=== PATIENT | female | born 2000 | race Caucasian/White ===

== ENCOUNTER 2020-02-01 16:35 | Emergency (ER) | payer OTHER ==
[2020-02-01 16:47] VITALS: BP 155/100; PULSE 89; TEMP 98.8; BMI 25.3
[2020-02-01 17:29] LABS: BASO % 0.3 % (0-2.0); EOS % 1.8 % (0-4.5); HEMATOCRIT 27.9 % (32.4-45.2); HEMOGLOBIN 8.9 GM/dL (10.7-15.3); LYMPH % 13.4 % (8-40); MCH 21.9 pg (25.7-33.7); MCHC 31.9 g/dl (32.0-36.0); MEAN CELL VOLUME 68.7 fl (80-96); MEAN PLT VOLUME 7.3 fl (7.5-11.1); MONO % 8.9 % (3.8-10.2); NEUT % 75.6 % (42.8-82.8); PLATELET COUNT 298 K/MM3 (134-434); RBC 4.06 M/mm3 (3.60-5.2); RDW 16.5 % (11.6-15.6); WHITE BLOOD COUNT 8.6 K/mm3 (4.0-10.0)
[2020-02-01 18:08] LABS: ALBUMIN 2.6 g/dl (3.4-5.0); BILIRUBIN,TOTAL 0.2 mg/dL (0.2-1); BLOOD UREA NITROGEN 7.6 mg/dL (7-18); CALCIUM 8.6 mg/dL (8.5-10.1); CREATININE 0.5 mg/dL (0.55-1.3); POTASSIUM 4.4 mmol/L (3.5-5.1); TOT PROT 7.2 g/dl (6.4-8.2)
[2020-02-01 18:41] LABS: EPI CELLS >36 /uL (0-25.1); HYALINE CASTS 6 /uL (0-3.1); PH,URINE 7.5 (5.0-8.0); URINE APPEARANCE CLOUDY; URINE BACTERIA 4090 /uL (0-1359); URINE BILIRUBIN NEGATIVE (NEGATIVE); URINE COLOR YELLOW; URINE GLUCOSE (UA) NEGATIVE (NEGATIVE); URINE KETONE 1+ (NEGATIVE); URINE LEUK ESTERASE 2+ (NEGATIVE); URINE NITRITE NEGATIVE (NEGATIVE); URINE PROTEIN TRACE (NEGATIVE); URINE UROBILINOGEN 0.2 mg/dL (0.2-1.0); URINE WBC 274 /uL (0-25.8)
[2020-02-01 19:15] LABS: URINE RBC 18.2 /uL (0-23.9)
[2020-02-01 20:02] LABS: ANISOCYTOSIS 1+; MACROCYTOSIS 1+; OVALOCYTE 1+; PLATELET ESTIMATE NORMAL
== END 2020-02-01 22:00 | disposition home or self-care (01) ==
LOC: JER 16:35
DX: O99.012 Anemia complicating pregnancy, second trimester (principal)
CPT/HCPCS: 36415; 76801-TC; 80053; 81003; 84702; 85025; 86850; 86900; 86901; 87086; 87186; 99285-25

== ENCOUNTER 2020-02-12 04:26 | Emergency (ER) | payer OTHER ==
--- NOTE | 2020-02-12 05:02 | PDOC ---
Attending Attestation - Resident Resident Name: BrannonClinton - ED Attending Attestation I have performed the following: I have examined & evaluated the patient, The case was reviewed & discussed with the resident, I agree w/resident's findings & plan - HPI HPI: 02/12/20 06:40 see resident hpi - Physicial Exam PE: 02/12/20 06:40 see resident exam - Medical Decision Making 02/12/20 06:40 19-year-old female approximately 15 weeks gestational age with vaginal spotting and suprapubic pain Positive heart rate of 139 on bedside ultrasound We will sign out to dayshift pending labs and formal ultrasound Discharge - Discharge Information Problems reviewed: Yes Clinical Impression/Diagnosis: Vaginal bleeding during Condition: Fair - Follow up/Referral - Patient Discharge Instructions - Post Discharge Activity
[2020-02-12] MEDS ORDERED: LACTATED RINGERS SOLUTION 1000 ML INFUS.BAG IV ONE (05:09)
--- NOTE | 2020-02-12 05:09 | PDOC ---
History of Present Illness <Maritza Russell - Last Filed: 02/12/20 08:36> - History of Present Illness Initial Comments: Fanny Bey is a 19 y/o female with PMH significant for anemia, @ 15 weeks, presenting today with suprapubic abdominal pain and vaginal spotting. Reports that this started a few hours ago and she placed a pad. No clots. No fever/chills. No chest pain/shortness of breath/dizziness. No back pain. No dysuria. No leg swelling. No nausea/vomiting. <Clinton Brannon - Last Filed: 02/13/20 12:27> - General Stated Complaint: VAG BLEED/15 WEEKS Time Seen by Provider: 02/12/20 04:59 Past History <Maritza Russell - Last Filed: 02/12/20 08:36> - Medical History COPD: No - Immunization History Immunization Up to Date: Yes - Psycho-Social/Smoking History Smoking History: Never smoked <Clinton Brannon - Last Filed: 02/13/20 12:27> - Medical History Allergies/Adverse Reactions: Allergies Allergy/AdvReac Type Severity Reaction Status Date / Time No Known Allergies Allergy Verified 02/12/20 05:12 Home Medications: Ambulatory Orders NK [No Known Home Medication] 02/12/20 Review of Systems - Review of Systems Comments:: GENERAL/CONSTITUTIONAL: No fever or chills. No weakness._ HEAD, EYES, EARS, NOSE AND THROAT: No change in vision. No change in hearing. No sore throat._ CARDIOVASCULAR: No chest pain or shortness of breath_ RESPIRATORY: Denies cough, hemoptysis_ GASTROINTESTINAL: No nausea, vomiting, diarrhea or constipation._ GENITOURINARY: No dysuria, frequency, or change in urination. Reports vaginal spotting. MUSCULOSKELETAL: No joint or muscle swelling or pain. No neck or back pain._ SKIN: No rash_ NEUROLOGIC: No headache, vertigo, loss of consciousness, or change in strength/sensation._ ENDOCRINE: No increased thirst. No abnormal weight change_ HEMATOLOGIC/LYMPHATIC: No anemia, easy bleeding, or history of blood clots._ ALLERGIC/IMMUNOLOGIC: No hives or skin allergy._ <Clinton Brannon - Last Filed: 02/13/20 12:27> *Physical Exam - Vital Signs Last Vital Signs Temp Pulse Resp BP Pulse Ox 98.1 F 65 16 90/60 100 02/12/20 06:44 02/12/20 07:10 02/12/20 07:10 02/12/20 07:10 02/12/20 07:10 <Maritza Russell - Last Filed: 02/12/20 08:36> - Physical Exam GENERAL: Awake, alert, and oriented to person/place/time, in no acute distress_ HEAD: No signs of trauma, normocephalic, atraumatic _ EYES: PERRLA, EOMI, sclera anicteric, conjunctiva clear_ ENT: Hearing grossly normal, nares patent, oropharynx clear without exudates. No uvular deviation. Moist mucosa_ NECK: Normal ROM, supple, no lymphadenopathy, JVD, or masses_ LUNGS: No distress, speaks in full sentences, clear to auscultation bilaterally _ HEART: Regular rate and rhythm, normal S1 and S2, no murmurs appreciated, peripheral pulses normal and equal bilaterally._ ABDOMEN: Soft, minimal suprapubic TTP, normoactive bowel sounds. No guarding, no rebound. No masses_ EXTREMITIES: Normal inspection, Normal range of motion, no edema. No clubbing or cyanosis_ NEUROLOGICAL: Cranial nerves II through XII grossly intact. Normal speech, normal gait, no focal sensorimotor deficits _ SKIN: Warm, Dry, normal turgor, no rashes or lesions noted_ PELVIC: Os closed. Minimal bleeding in vaginal vault. No discharge. No CMT or adnexal tenderness bilaterally. <Clinton Brannon - Last Filed: 02/13/20 12:27> ED Treatment Course - LABORATORY CBC & Chemistry Diagram: 02/12/20 05:20 02/12/20 05:32 - ADDITIONAL ORDERS Additional order review: Laboratory Results 02/12/20 02/12/20 02/12/20 06:11 05:32 05:32 Sodium 137 Potassium 3.8 Chloride 105 Carbon Dioxide 24 Anion Gap 8 BUN 12.2 Creatinine 0.5 L Est GFR (CKD-EPI)AfAm 160.35 Est GFR (CKD-EPI)NonAf 138.35 Random Glucose 81 Calcium 8.6 Total Bilirubin 0.2 AST 11 L ALT 26 Alkaline Phosphatase 96 Total Protein 7.3 Albumin 2.7 L Beta HCG, Quant 14772.2 Urine Color Yellow Urine Appearance Clear Urine pH 7.0 Ur Specific [place] 1.012 Urine Protein Negative Urine Glucose (UA) Negative Urine Ketones Negative Urine Blood 1+ H Urine Nitrite Positive H Urine Bilirubin Negative Urine Urobilinogen 0.2 Ur Leukocyte Esterase 2+ H Urine WBC (Auto) 90 Urine RBC (Auto) 1 Urine Casts (Auto) 2 U Epithel Cells (Auto) >36 Urine Bacteria (Auto) >10,000 02/12/20 05:20 RBC 4.20 MCV 70.2 L MCHC 31.4 L RDW 17.7 H MPV 6.7 L Neutrophils % 63.6 Lymphocytes % 27.7 D Monocytes % 5.1 Eosinophils % 3.2 Basophils % 0.4 - Medications Given in the ED: ED Medications Discontinued Medications Generic Name Dose Route Start Last Admin Trade Name Brayanq PRN Reason Stop Dose Admin Lactated Ringer's 1,000 ml 02/12/20 05:09 02/12/20 05:27 Lactated Ringers Solution IV 02/12/20 05:10 1,000 ml NOW ONE Administration Sodium Chloride 1,000 ml 02/12/20 05:14 02/12/20 05:41 Normal Saline - IV 02/12/20 05:15 Not Given ONCE ONE <Maritza Russell - Last Filed: 02/12/20 08:36> - LABORATORY CBC & Chemistry Diagram: 02/12/20 05:20 02/12/20 05:32 <Clinton Brannon - Last Filed: 02/13/20 12:27> Medical Decision Making - Medical Decision Making 02/12/20 05:13 19F presenting today with vaginal spotting. Baseline anemia. -labs -type and screen - US 02/12/20 06:17 POCUS OB shows FHR of 140bpm. 02/12/20 07:19 Labs reviewed. Laboratory Last Values WBC 9.0 K/mm3 (4.0-10.0) 02/12/20 05:20 RBC 4.20 M/mm3 (3.60-5.2) 02/12/20 05:20 Hgb 9.3 GM/dL (10.7-15.3) L 02/12/20 05:20 Hct 29.5 % (32.4-45.2) L 02/12/20 05:20 MCV 70.2 fl (80-96) L 02/12/20 05:20 MCH 22.1 pg (25.7-33.7) L 02/12/20 05:20 MCHC 31.4 g/dl (32.0-36.0) L 02/12/20 05:20 RDW 17.7 % (11.6-15.6) H 02/12/20 05:20 Plt Count 492 K/MM3 (134-434) H D 02/12/20 05:20 MPV 6.7 fl (7.5-11.1) L 02/12/20 05:20 Absolute Neuts (auto) 5.7 K/mm3 (1.5-8.0) 02/12/20 05:20 Neutrophils % 63.6 % (42.8-82.8) 02/12/20 05:20 Lymphocytes % 27.7 % (8-40) D 02/12/20 05:20 Monocytes % 5.1 % (3.8-10.2) 02/12/20 05:20 Eosinophils % 3.2 % (0-4.5) 02/12/20 05:20 Basophils % 0.4 % (0-2.0) 02/12/20 05:20 Nucleated RBC % 0 % (0-0) 02/12/20 05:20 Sodium 137 mmol/L (136-145) 02/12/20 05:32 Potassium 3.8 mmol/L (3.5-5.1) 02/12/20 05:32 Chloride 105 mmol/L (98-107) 02/12/20 05:32 Carbon Dioxide 24 mmol/L (21-32) 02/12/20 05:32 Anion Gap 8 MMOL/L (8-16) 02/12/20 05:32 BUN 12.2 mg/dL (7-18) 02/12/20 05:32 Creatinine 0.5 mg/dL (0.55-1.3) L 02/12/20 05:32 Est GFR (CKD-EPI)AfAm 160.35 02/12/20 05:32 Est GFR (CKD-EPI)NonAf 138.35 02/12/20 05:32 Random Glucose 81 mg/dL (74-106) 02/12/20 05:32 Calcium 8.6 mg/dL (8.5-10.1) 02/12/20 05:32 Total Bilirubin 0.2 mg/dL (0.2-1) 02/12/20 05:32 AST 11 U/L (15-37) L 02/12/20 05:32 ALT 26 U/L (13-61) 02/12/20 05:32 Total Protein 7.3 g/dl (6.4-8.2) 02/12/20 05:32 Albumin 2.7 g/dl (3.4-5.0) L 02/12/20 05:32 Urine Color Yellow 02/12/20 06:11 Urine Appearance Clear 02/12/20 06:11 Urine pH 7.0 (5.0-8.0) 02/12/20 06:11 Ur Specific [place] 1.012 (1.010-1.035) 02/12/20 06:11 Urine Protein Negative (NEGATIVE) 02/12/20 06:11 Urine Glucose (UA) Negative (NEGATIVE) 02/12/20 06:11 Urine Ketones Negative (NEGATIVE) 02/12/20 06:11 Urine Blood 1+ (NEGATIVE) H 02/12/20 06:11 Urine Nitrite Positive (NEGATIVE) H 02/12/20 06:11 Urine Bilirubin Negative (NEGATIVE) 02/12/20 06:11 Urine Urobilinogen 0.2 mg/dL (0.2-1.0) 02/12/20 06:11 Ur Leukocyte Esterase 2+ (NEGATIVE) H 02/12/20 06:11 Urine WBC (Auto) 90 /uL (0-25.8) 02/12/20 06:11 Urine RBC (Auto) 1 /uL (0-23.9) 02/12/20 06:11 Urine Casts (Auto) 2 /uL (0-3.1) 02/12/20 06:11 U Epithel Cells (Auto) >36 /uL (0-25.1) 02/12/20 06:11 Urine Bacteria (Auto) >10,000 /uL (0-1359) 02/12/20 06:11 02/12/20 07:00 Pt s/o to Dr. Russell pending further work up and evaluation. <Clinton Brannon - Last Filed: 02/13/20 12:27> Discharge - Discharge Information Problems reviewed: Yes - Admission No <Maritza Russell - Last Filed: 02/12/20 08:36> - Discharge Information Problems reviewed: Yes - Admission No <Clinton Brannon - Last Filed: 02/13/20 12:27> - Discharge Information Clinical Impression/Diagnosis: Vaginal bleeding during Condition: Stable Disposition: HOME - Follow up/Referral Referrals: Debbie Cherry MD [Staff Physician] - - Patient Discharge Instructions Patient Printed Discharge Instructions: DI for Threatened , DI for Urinary Tract Infection (UTI) Additional Instructions: Please make a follow up appointment with an metal mixer (referral provided here). Please take Keflex 500 mg four times a day for 1 week for your urinary tract infection. If you experience any new, worsening, or concerning symptoms, including dizziness, shortness of breath, severe vaginal bleeding, or any other concerns, please return to the emergency department. Kathryn corazon arianne de seguimiento con un obstetra (se proporciona corazon referencia aqu). [place] Keflex 500 mg cuatro veces al da mike 1 semana para cota infeccin del tracto urinario. Si experimenta algn sntoma nuevo, que empeora o preocupa, catherine mareos, dificultad para respirar, sangrado vaginal phuc o cualquier otra inquietud, regrese al departamento de emergencias.
[2020-02-12 05:12] VITALS: BMI 23.3
[2020-02-12] MEDS ORDERED: SODIUM CHLORIDE 0.9% 500 ML INFUS.BAG IV ONE (05:14)
[2020-02-12 06:17] LABS: BASO % 0.4 % (0-2.0); EOS % 3.2 % (0-4.5); HEMATOCRIT 29.5 % (32.4-45.2); HEMOGLOBIN 9.3 GM/dL (10.7-15.3); LYMPH % 27.7 % (8-40); MCH 22.1 pg (25.7-33.7); MCHC 31.4 g/dl (32.0-36.0); MEAN CELL VOLUME 70.2 fl (80-96); MEAN PLT VOLUME 6.7 fl (7.5-11.1); MONO % 5.1 % (3.8-10.2); NEUT % 63.6 % (42.8-82.8); PLATELET COUNT 492 K/MM3 (134-434); RDW 17.7 % (11.6-15.6)
[2020-02-12 06:43] LABS: EPI CELLS >36 /uL (0-25.1); HYALINE CASTS 2 /uL (0-3.1); URINE APPEARANCE CLEAR; URINE BILIRUBIN NEGATIVE (NEGATIVE); URINE COLOR YELLOW; URINE GLUCOSE (UA) NEGATIVE (NEGATIVE); URINE KETONE NEGATIVE (NEGATIVE); URINE LEUK ESTERASE 2+ (NEGATIVE); URINE NITRITE POSITIVE (NEGATIVE); URINE PROTEIN NEGATIVE (NEGATIVE); URINE RBC 1 /uL (0-23.9); URINE UROBILINOGEN 0.2 mg/dL (0.2-1.0); URINE WBC 90 /uL (0-25.8)
[2020-02-12 06:43] LABS: ALBUMIN 2.7 g/dl (3.4-5.0); BILIRUBIN,TOTAL 0.2 mg/dL (0.2-1); BLOOD UREA NITROGEN 12.2 mg/dL (7-18); CALCIUM 8.6 mg/dL (8.5-10.1); CREATININE 0.5 mg/dL (0.55-1.3); POTASSIUM 3.8 mmol/L (3.5-5.1); TOT PROT 7.3 g/dl (6.4-8.2)
[2020-02-12 06:45] VITALS: TEMP 98.1
[2020-02-12] MEDS ORDERED: CEFTRIAXONE 1 GM in DEXTROSE 5%-WATER - 100 ML IVPB ONE (06:49)
--- NOTE | 2020-02-12 09:46 | PDOC ---
*Physical Exam - Vital Signs Last Vital Signs Temp Pulse Resp BP Pulse Ox 98.1 F 65 16 90/60 100 02/12/20 06:44 02/12/20 07:10 02/12/20 07:10 02/12/20 07:10 02/12/20 07:10 ED Treatment Course - LABORATORY CBC & Chemistry Diagram: 02/12/20 05:20 02/12/20 05:32 - ADDITIONAL ORDERS Additional order review: Laboratory Results 02/12/20 02/12/20 02/12/20 06:11 05:32 05:32 Sodium 137 Potassium 3.8 Chloride 105 Carbon Dioxide 24 Anion Gap 8 BUN 12.2 Creatinine 0.5 L Est GFR (CKD-EPI)AfAm 160.35 Est GFR (CKD-EPI)NonAf 138.35 Random Glucose 81 Calcium 8.6 Total Bilirubin 0.2 AST 11 L ALT 26 Alkaline Phosphatase 96 Total Protein 7.3 Albumin 2.7 L Beta HCG, Quant 73580.2 Urine Color Yellow Urine Appearance Clear Urine pH 7.0 Ur Specific [place] 1.012 Urine Protein Negative Urine Glucose (UA) Negative Urine Ketones Negative Urine Blood 1+ H Urine Nitrite Positive H Urine Bilirubin Negative Urine Urobilinogen 0.2 Ur Leukocyte Esterase 2+ H Urine WBC (Auto) 90 Urine RBC (Auto) 1 Urine Casts (Auto) 2 U Epithel Cells (Auto) >36 Urine Bacteria (Auto) >10,000 Blood Type Antibody Screen 02/12/20 05:20 Sodium Potassium Chloride Carbon Dioxide Anion Gap BUN Creatinine Est GFR (CKD-EPI)AfAm Est GFR (CKD-EPI)NonAf Random Glucose Calcium Total Bilirubin AST ALT Alkaline Phosphatase Total Protein Albumin Beta HCG, Quant Urine Color Urine Appearance Urine pH Ur Specific [place] Urine Protein Urine Glucose (UA) Urine Ketones Urine Blood Urine Nitrite Urine Bilirubin Urine Urobilinogen Ur Leukocyte Esterase Urine WBC (Auto) Urine RBC (Auto) Urine Casts (Auto) U Epithel Cells (Auto) Urine Bacteria (Auto) Blood Type O POSITIVE Antibody Screen Positive 02/12/20 05:20 RBC 4.20 MCV 70.2 L MCHC 31.4 L RDW 17.7 H MPV 6.7 L Neutrophils % 63.6 Lymphocytes % 27.7 D Monocytes % 5.1 Eosinophils % 3.2 Basophils % 0.4 - Medications Given in the ED: ED Medications Discontinued Medications Generic Name Dose Route Start Last Admin Trade Name Freq PRN Reason Stop Dose Admin Ceftriaxone Sodium 1 gm/ 100 mls @ 200 mls/hr 02/12/20 06:49 02/12/20 07:25 Dextrose IVPB 02/12/20 07:18 200 mls/hr ONCE ONE Administration Lactated Ringer's 1,000 ml 02/12/20 05:09 02/12/20 05:27 Lactated Ringers Solution IV 02/12/20 05:10 1,000 ml NOW ONE Administration Sodium Chloride 1,000 ml 02/12/20 05:14 02/12/20 05:41 Normal Saline - IV 02/12/20 05:15 Not Given ONCE ONE Medical Decision Making - Medical Decision Making MDM: Patient was signed out to me by Dr. Brannon. d/c Pending Ob U/S CBC, CMP, Type and screen done UA w/ UTI - d/c on Keflex Needs follow-up with Ob 02/12/20 10:04 : Single intrauterine gestation of 17 weeks 2 days Discussed with patient the need for follow-up and to consistently take her antibiotics Discharge - Discharge Information Problems reviewed: Yes Clinical Impression/Diagnosis: Vaginal bleeding during Condition: Fair - Admission No - Follow up/Referral Referrals: Debbie Cherry MD [Staff Physician] - - Patient Discharge Instructions Patient Printed Discharge Instructions: DI for Threatened , DI for Urinary Tract Infection (UTI) Additional Instructions: Please make a follow up appointment with an implementation specialist payroll (referral provided here). Please take Keflex 500 mg four times a day for 1 week for your urinary tract infection. If you experience any new, worsening, or concerning symptoms, including dizziness, shortness of breath, severe vaginal bleeding, or any other concerns, please return to the emergency department. Kathryn corazon arianne de seguimiento con un obstetra (se proporciona corazon referencia aqu). [place] Keflex 500 mg cuatro veces al da mike 1 semana para cota infeccin del tracto urinario. Si experimenta algn sntoma nuevo, que empeora o preocupa, catherine mareos, dificultad para respirar, sangrado vaginal phuc o cualquier otra inquietud, regrese al departamento de emergencias. - Post Discharge Activity
[2020-02-12 10:16] VITALS: BP 86/50; PULSE 65
== END 2020-02-12 10:44 | disposition home or self-care (01) ==
LOC: JER 04:26 → SUPCPDRO 04:26 → JER 10:44
DX: O20.8 Other hemorrhage in early pregnancy (principal)
CPT/HCPCS: 36415; 76801-TC; 80053; 81003; 84702; 85025; 86850; 86870; 86900; 86901; 86902; 87086; 87186; 99284-25

== ENCOUNTER 2020-02-27 04:16 | Emergency (ER) | payer OTHER ==
[2020-02-27] MEDS ORDERED: SODIUM CHLORIDE 1,000 ML IV ONE (04:19)
[2020-02-27 04:30] LABS: BASO % 0.6 % (0-2.0); EOS % 2.4 % (0-4.5); HEMOGLOBIN 10.3 GM/dL (10.7-15.3); LYMPH % 49.1 % (8-40); MCH 23.8 pg (25.7-33.7); MCHC 31.2 g/dl (32.0-36.0); MEAN CELL VOLUME 76.3 fl (80-96); MEAN PLT VOLUME 7.2 fl (7.5-11.1); MONO % 2.1 % (3.8-10.2); NEUT % 45.8 % (42.8-82.8); PLATELET COUNT 154 K/MM3 (134-434); RBC 4.32 M/mm3 (3.60-5.2); RDW 21.2 % (11.6-15.6); WHITE BLOOD COUNT 19.2 K/mm3 (4.0-10.0)
[2020-02-27] MEDS ORDERED: MIDAZOLAM HCL 2 MG/2 ML SINGLE DOSE VIAL ONE ×3 (04:33→05:53)
[2020-02-27 04:35] VITALS: BMI 22.6
--- NOTE | 2020-02-27 04:39 | PDOC ---
Attending Attestation - Resident Resident Name: Thao Barcenas - ED Attending Attestation I have performed the following: I have examined & evaluated the patient, The case was reviewed & discussed with the resident, I agree w/resident's findings & plan - HPI HPI: 02/27/20 19:32 see resident hpi - Physicial Exam PE: 02/27/20 19:32 see resident exam - Critical Care Time Total Critical Care Time: 120 Critical Care Statement: The care of this patient involved high complexity decision making to prevent further life threatening deterioration of the patient's condition and/or to evaluate & treat vital organ system(s) failure or risk of failure. - Medical Decision Making 02/27/20 19:33 19-year-old female currently 19 weeks 3 days gestational age with remote history of vaginal spotting now found unresponsive face down by family in her room, possible seizure activity according to paramedics prior to arrival Patient was promptly intubated due to snoring respirations and clenched jaw Due to possible trauma and altered mental status as well as vaginal bleeding on arrival a CT scan of the head cervical spine chest abdomen and pelvis was obtained using CTA protocol for the chest to also rule out pulmonary embolism There is sign of active bleeding in the uterus, aside from involutional changes in the brain there are no signs of traumatic injury otherwise Call placed to in-house ED TEACHER as well as anesthesia who were at the bedside for comanagement Due to complexity of case in-house ED TEACHER as requested transfer to tertiary care facility for further management [facility] Exam consistent with DIC diagnosis, cryoprecipitate FFP platelets and packed red blood cells were administered as well as antibiotics Transfer pending, dayshift assumed care Discharge - Discharge Information Problems reviewed: Yes Clinical Impression/Diagnosis: Endotracheally intubated, Unresponsive, DIC (disseminated intravascular coagulation) Qualifiers: Weeks of gestation: unspecified Qualified Code(s): Z34.90 - Encounter for supervision of normal , unspecified, unspecified trimester Placental abruption Qualifiers: Trimester: first trimester Qualified Code(s): O45.91 - Premature separation of placenta, unspecified, first trimester Condition: Critical Disposition: TRANSFER ACUTE CARE/OTHER HOSP - Follow up/Referral - Patient Discharge Instructions - Post Discharge Activity
[2020-02-27 05:00] LABS: ALBUMIN 2.8 g/dl (3.4-5.0); BILIRUBIN,TOTAL 0.3 mg/dL (0.2-1); BLOOD UREA NITROGEN 15.6 mg/dL (7-18); CALCIUM 8.5 mg/dL (8.5-10.1); CREATININE 0.9 mg/dL (0.55-1.3); TOT PROT 7.6 g/dl (6.4-8.2)
--- NOTE | 2020-02-27 05:00 | PDOC ---
History of Present Illness - General Chief Complaint: Altered Mental Status Stated Complaint: UNRESPONSIVE Time Seen by Provider: 02/27/20 04:39 Past History - Medical History Allergies/Adverse Reactions: Allergies Allergy/AdvReac Type Severity Reaction Status Date / Time No Known Allergies Allergy Verified 02/27/20 04:35 Home Medications: Ambulatory Orders Cephalexin Monohydrate [Keflex -] 500 mg PO BID 7 Days #14 capsule 02/14/20 COPD: No - Immunization History Immunization Up to Date: Yes - Psycho-Social/Smoking History Smoking History: Unknown if ever smoked Have you smoked in the past 12 months: No Information on smoking cessation initiated: No *Physical Exam - Vital Signs Last Vital Signs Temp Pulse Resp BP Pulse Ox 93.9 F L 129 H 31 H 111/89 02/27/20 04:19 02/27/20 04:19 02/27/20 04:19 02/27/20 04:19 Procedures - Intubation Time of Intubation: 04:20 Intubation Method: orotracheal Blade used: Mac Tube Size (Fr): 7.5 Medications: Etomidate, Rocuronium, Succinylcholine Tube position @ lip (cm): 21 Tube position confirmed by: Direct visualization, CO2 detector, Breath sounds Breath Sounds after Intubation: equal Intubation Complications: no complications Post Intubation Xray: No (post-intubation CT) ED Treatment Course - LABORATORY CBC & Chemistry Diagram: 02/27/20 09:02 02/27/20 09:02 Medical Decision Making - Medical Decision Making 02/27/20 04:59 HPI: 19-year-old female (previous c/s), 19 weeks 3 days by US (02/12/20 17w2d), on cephalexin since 02/01/20 for bacteriuria, hx anemia (transfusion last year in [place]) BIBA for unresponsiveness and hypotension. History per EMS and mother. Pt was in [place] earlier in day, [place] 10pm, found unresponsive on floor at home by family at approx 0300. Some bleeding in pad. EMS found pt unresponsive, hypotensive. BGM 200s. ROS: unable to obtain 2/2 AMS PE: Gen: responsive to pain only, agitated, not opening eyes HEENT: PERRL, MMM, NCAT. No conjunctival pallor. Sclera are non-icteric. Fake upper teeth present, removed. Biting tongue, bleeding from tongue. CV: Tachycardic rate and regular rhythm. No murmurs, rubs, or gallops. PULM: CTAB, no wheezes, rales, or rhonchi. ABD: soft, fundus at umbilicus. PELVIC: External genitalia unremarkable. Bimanual exam notable for minimal blood and cervix closed per curriculum writer. BACK: No step-offs or deformities. MSK: No bony deformities. 2+ pulses in all extremities. NEURO: Responsive to pain only. PERRL. Moving all extremities. EXTREMITIES: No cyanosis. No clubbing. No edema. PSYCH: Unable to assess SKIN: Warm and dry. Normal capillary refill. No rashes. No jaundice. MDM: 19-year-old female , 19 weeks 3 days by US (02/12/20 17w2d), on cephalexin since 02/01/20 for bacteriuria, hx anemia (transfusion last year in [place]) BIBA for unresponsiveness and hypotension. History per EMS and mother. Pt was in [place] earlier in day, [place] 10pm, found unresponsive on floor at home by family at approx 0300. Some bleeding in pad. EMS found pt unresponsive, hypotensive. BGM 200s. A: not protecting airway, clamping down on tongue, bleeding tongue -etomidate 20, succ 100, maren 50, intubated 7.5 B: bilateral BS present, hypoxic C: hypotensive, bleeding from IV sites briskly, distal pulses present -IVF D: moving all extremities/agitated prior to intubation and sedation Remaining exam notable for fundus at umbilicus. Sample Sawyer performed bimanual, minimal bleeding, cervix closed. PERRL, responsive to pain only. No e/o trauma externally. Temp 93.9, hypoxic, tachycardic, hypotensive. -Warm blankets -Intubated 7.5 -OGT placed -Labs sent -1L NS started -Higgins scan CTs: CTH/c-spine, CTA chest for PE, CTAP w/IV contrast -POCUS: neg for free fluid, FHR present -Consulted respiratory, anaesthesia, and tire maintenance technician Normotensive s/p 1L NS. 2 doses of versed x2mg for sedation. Labs reviewed. Notable for WBC 19.2, H/H 10.3/33, K 2.9, TSH 8.42, free T4 1.07, trop 0.38 CTH reviewed: involutional changes out of proportion to young age EKG reviewed: sinus tachycardia, 129bpm, QTc 454ms, normal axis, nonspecific ST and T wave abnormalities, no priors for comparison Ddx includes: DIC, seizure, sepsis, thyroid pathology, ICH, PE, infection, anemia, metabolic derangement, intox 02/27/20 05:42 Pt moving extremities / agitated again. Pt seizing. -Versed 4mg and drip 02/27/20 05:47 VBG pH 7.17 Lact 9.8 Coags outside readable range Likely DIC -FFP (pending blood bank) -pRBCs 2U started -Cryoprecipitate (pending blood bank) 02/27/20 05:50 [facility] transfer center called 02/27/20 05:[address] ICU attending Dr Case - ICU full but placed on waitlist. Pending call back ED attending Received call IOC: CTA chest - no PE CTAP - possible active extravasation/hemorrhage into placenta Called back [facility] transfer center. Dr Quan Sample Sawyer Dr Farr M 02/27/20 06:15 FHR still present, 90s 02/27/20 06:19 -Vanc -Rashaun Spoke with MFM/Sample Sawyer at [facility] - states unable to handle level of acuity. Recomm ends tx to [facility]. Called [facility] tx center. Pending call-back. 02/27/20 06:31 ICU consulted 02/27/20 06:[address] Shaw - accepted pt for transfer, pending bed 02/27/20 07:15 US c/w placental abruption 02/27/20 07:18 Sample Sawyer/MFM Dr Barr - accepts pt IF stable for tx. -CBC,Coags Spoke with [facility] MFM and ICU attending. Discussing where to send and need for CVC. Phone handed off to Attending Mallory per request of [facility] attendings. Pt signed out to day team [] transfer. Discharge - Discharge Information Problems reviewed: Yes Clinical Impression/Diagnosis: Endotracheally intubated, Unresponsive, DIC (disseminated intravascular coagulation) Qualifiers: Weeks of gestation: unspecified Qualified Code(s): Z34.90 - Encounter for supervision of normal , unspecified, unspecified trimester Placental abruption Qualifiers: Trimester: first trimester Qualified Code(s): O45.91 - Premature separation of placenta, unspecified, first trimester Condition: Critical Disposition: TRANSFER ACUTE CARE/OTHER HOSP - Follow up/Referral - Patient Discharge Instructions - Post Discharge Activity - Transfer to Acute Care Facility Receiving Facility Name: [facility]
--- NOTE | 2020-02-27 05:01 | CON.OBG ---
Consult Consult Specialty:: ob/gy Referred by:: ED dept Reason for Consultation:: 19 yrs , previous c/s m c/o bleeding&pain on Rt side to mother . she found her unredpinsive. bleeding was like period . pt BIBA . h/o given by mother - History of Present Illness Chief Complaint: s/a History of Present Illness: mo pnc pt seen in ED om 01/31 & 02/11 c/o dizziness , light bleeding US 01/31/ 15.6 wks ant placenta sliup .uc/s Ecoli , h/h 8.9/27.9, wbc 8.6 , plt 208, pt discharged with macrobid & iron & vit US 02/12/20 17,2 wks sliup EDC 07/20/20 h/h 9.3/29.8, wbc 9.0, plt 492 uc/s ecoli & klebsiella RX IV Rocephine , discharged with Cephalxin po history obtained from mother 1 previous c/s 18 months ago in [place] , wt 5lb , over due 40.4 wk no other problems - History Source History Provided By: Family Member Limitations to Obtaining History: Unresponsive - Past Medical History HAT FORMER: Yes: Other (no h/o seizures ) Cardio/Vascular: Yes: Other (no h/o cardiac problems ). No: HTN Pulmonary: No: Asthma Gastrointestinal: Yes: Other (none known ) Hepatobiliary: Yes: Other (not aware) Renal/: Yes: UTI (diagnosed 01/31 & 02/11 in ED ) ...LMP: 10/14/19 (not known ) ...: Yes ...: 2 ...Para: 1 (previous c/s ) Heme/Onc: Yes: Anemia Infectious Disease: Yes: Other (none known ) Psych: Yes: Other (none known ) - Past Surgical History Past Surgical History: Yes: None, - Smoking History Smoking history: Unknown if ever smoked Have you smoked in the past 12 months: No Home Medications - Allergies Allergies/Adverse Reactions: Allergies Allergy/AdvReac Type Severity Reaction Status Date / Time No Known Allergies Allergy Verified 02/27/20 04:35 - Home Medications Home Medications: Ambulatory Orders Cephalexin Monohydrate [Keflex -] 500 mg PO BID 7 Days #14 capsule 02/14/20 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 Vital Signs: Vital Signs Temperature 93.9 F L 02/27/20 04:19 Pulse Rate 129 H 02/27/20 04:19 Respiratory Rate 31 H 02/27/20 04:19 Blood Pressure 111/89 02/27/20 04:19 O2 Sat by Pulse Oximetry (%) Constitutional: Yes: Pallor, Other (pt unresponsive) Respiratory: Yes: Other (intubated) Renal/: Yes: (18 weeks size ut , ut firm not teanically contracted), Vaginal Bleeding (panty liner stained , brown old blood) Vaginal Exam: Yes: Bleeding (not fresh , old blood) Cervix: Yes: Other (os close) Uterus: Yes: Other (18 weeks ut , FPF) Adnexa: Not Palpable: Bilateral Breast(s): Yes: Other (not examined) Edema: No Integumentary: Yes: Incision (subumblical midline scar of previous c/s), Other (bleeding from iv site, not stopping bleeding) Neurological: Yes: Other (unresponsive , intubated) Labs: Laboratory Tests 02/01/20 02/27/20 02/27/20 17:10 04:10 04:10 Hgb 10.3 L Hct 33.0 MCV 76.3 L MCH 23.8 L MCHC 31.2 L RDW 21.2 H Plt Count 154 D MPV 7.2 L Absolute Neuts (auto) 8.8 H Neutrophils % 45.8 D Lymphocytes % 49.1 H D Monocytes % 2.1 L Eosinophils % 2.4 Basophils % 0.6 Nucleated RBC % 0 Hypochromia 1+ Platelet Estimate Normal Platelet Comment Present Polychromasia 1+ Poikilocytosis 1+ Anisocytosis 1+ Microcytosis 1+ Macrocytosis 1+ Ovalocytes 1+ Sodium 136 Potassium 2.9 L* Chloride 106 Carbon Dioxide 12 L Anion Gap 19 H BUN 15.6 Creatinine 0.9 Est GFR (CKD-EPI)AfAm 105.93 Est GFR (CKD-EPI)NonAf 91.40 Random Glucose 220 H Lactic Acid Calcium 8.5 Total Bilirubin 0.3 AST 33 ALT 20 Alkaline Phosphatase 102 Creatine Kinase 71 Troponin I 0.38 H Total Protein 7.6 Albumin 2.8 L TSH 8.42 H 02/27/20 05:10 Hgb Hct MCV MCH MCHC RDW Plt Count MPV Absolute Neuts (auto) Neutrophils % Lymphocytes % Monocytes % Eosinophils % Basophils % Nucleated RBC % Hypochromia Platelet Estimate Platelet Comment Polychromasia Poikilocytosis Anisocytosis Microcytosis Macrocytosis Ovalocytes Sodium Potassium Chloride Carbon Dioxide Anion Gap BUN Creatinine Est GFR (CKD-EPI)AfAm Est GFR (CKD-EPI)NonAf Random Glucose Lactic Acid Pending Calcium Total Bilirubin AST ALT Alkaline Phosphatase Creatine Kinase Troponin I Total Protein Albumin TSH Assessment/Plan 19 yrs , previous c/s 19.3 weeks , bed side sono ? transvrse lie FHactivity feeble on us .ant placenta h/o UtI 01/31 & 02/11 incompleyely treated , possible septic shock unable to r/o abruptio placenta suspect DIC cause unknown, may be abruptio management as per ED for DIC transfer to [facility] 7.00 AM i am notified [facility] does not have icu bed available, hence transfer not accepted, [facility] contacted , accepted transfer pending bed available, pt is treated for DIC 2 PCT/2 FFP/ one cryopreciptate k 2.9 is being corrected, 10 meq kcl given I spoke with MFM from [facility] Dr [place] pt's history & today's findings , work up & management notified ct scan pelvis verbal report by MDin ED bleeding active in placenta . bed side us again 19.3 wks sliup, breech, ant placenta , blood clot near cx in lower segment , fhr 133bpm clinically now ut relaxing & contacting palpated by me , no ext active bleeding pt's mother is notified about need of evacuation of ut after DIC is corrected , chances of fetus survival are not there. Dr Dodd herself spoke to patient on telephone . ED MD is directed to place central line before transfer Selected Entries 02/27/20 06:45 Pulse Rate [ 129 H Left Radial] Respiratory Tachypnea Pattern Blood Pressure 124/65 [Right Calf] O2 Sat by Pulse 100 Oximetry (%) grissom catheter in situ draining well lightly blood stained urine .
[2020-02-27 05:08] LABS: POTASSIUM 2.9 mmol/L (3.5-5.1)
--- NOTE | 2020-02-27 05:24 | PROC ---
Procedure Note Procedure: ANESTHESIA Procedure: sedation 19F 20wks gravid by report found unresponsive. Called to bedside for assistance with periprocedural sedation. Recently intubated by ED staff. Escorted with ED staff to Radiology. IV sedation and monitoring provided for scan and for return to ER. Intra-scan VS: HR110 BP123/70 O2sat 100% on FiO21.0, TV400, RR10 Post-scan VS: HR108 BP123/66 O2sat 100% Vent settings unchanged 4mg midazolam administered: 2mg prior to scan, 2mg in ER post-scan Laboratory Last Values WBC 19.2 K/mm3 (4.0-10.0) H 02/27/20 04:10 RBC 4.32 M/mm3 (3.60-5.2) 02/27/20 04:10 Hgb 10.3 GM/dL (10.7-15.3) L 02/27/20 04:10 Hct 33.0 % (32.4-45.2) 02/27/20 04:10 MCV 76.3 fl (80-96) L 02/27/20 04:10 MCH 23.8 pg (25.7-33.7) L 02/27/20 04:10 MCHC 31.2 g/dl (32.0-36.0) L 02/27/20 04:10 RDW 21.2 % (11.6-15.6) H 02/27/20 04:10 Plt Count 154 K/MM3 (134-434) D 02/27/20 04:10 MPV 7.2 fl (7.5-11.1) L 02/27/20 04:10 Absolute Neuts (auto) 8.8 K/mm3 (1.5-8.0) H 02/27/20 04:10 Neutrophils % 45.8 % (42.8-82.8) D 02/27/20 04:10 Lymphocytes % 49.1 % (8-40) H D 02/27/20 04:10 Monocytes % 2.1 % (3.8-10.2) L 02/27/20 04:10 Eosinophils % 2.4 % (0-4.5) 02/27/20 04:10 Basophils % 0.6 % (0-2.0) 02/27/20 04:10 Nucleated RBC % 0 % (0-0) 02/27/20 04:10 PT with INR Cancelled 02/27/20 04:10 INR Cancelled 02/27/20 04:10 PTT (Actin FS) Cancelled 02/27/20 04:10 Sodium 136 mmol/L (136-145) 02/27/20 04:10 Potassium 2.9 mmol/L (3.5-5.1) L* 02/27/20 04:10 Chloride 106 mmol/L (98-107) 02/27/20 04:10 Carbon Dioxide 12 mmol/L (21-32) L 02/27/20 04:10 Anion Gap 19 MMOL/L (8-16) H 02/27/20 04:10 BUN 15.6 mg/dL (7-18) 02/27/20 04:10 Creatinine 0.9 mg/dL (0.55-1.3) 02/27/20 04:10 Est GFR (CKD-EPI)AfAm 105.93 02/27/20 04:10 Est GFR (CKD-EPI)NonAf 91.40 02/27/20 04:10 Random Glucose 220 mg/dL (74-106) H 02/27/20 04:10 Calcium 8.5 mg/dL (8.5-10.1) 02/27/20 04:10 Total Bilirubin 0.3 mg/dL (0.2-1) 02/27/20 04:10 AST 33 U/L (15-37) 02/27/20 04:10 ALT 20 U/L (13-61) 02/27/20 04:10 Alkaline Phosphatase 102 U/L (45-117) 02/27/20 04:10 Creatine Kinase 71 U/L (26-192) 02/27/20 04:10 Troponin I 0.38 ng/ml (0.00-0.05) H 02/27/20 04:10 Total Protein 7.6 g/dl (6.4-8.2) 02/27/20 04:10 Albumin 2.8 g/dl (3.4-5.0) L 02/27/20 04:10 TSH 8.42 uIU/ml (0.358-3.74) H 02/27/20 04:10 - Care per ER staff - HD stable
[2020-02-27] MEDS ORDERED: KCL 10 MEQ IVPB 20 MEQ/200 ML INFUS.BAG IVPB ONE (05:33)
[2020-02-27] MEDS: KCL 10 MEQ IVPB 10 MEQ/100 ML INFUS.BAG IVPB SCH ×2 (05:39→07:30)
[2020-02-27] MEDS ORDERED: MIDAZOLAM HCL 2 MG/2 ML SINGLE DOSE VIAL IVPUSH ONE (05:41)
[2020-02-27 05:42] LABS: VENOUS BASE EXCESS -11.7 mmol/L (-2-2); VENOUS O2 SATURATION 98.6 % (70-80); VENOUS PCO2 45.2 mmHg (38-52)
[2020-02-27 05:45] LABS: VENOUS PH 7.172 (7.310-7.410)
[2020-02-27] MEDS ORDERED: MIDAZOLAM 100 MG in SODIUM CHLORIDE 100 ML IVPB SCH (05:45)
[2020-02-27] MEDS ORDERED: MIDAZOLAM IN 0.9 % SOD.CHLORID 1 MG/1 ML PLAST..BAG ONE (06:00)
[2020-02-27] MEDS ORDERED: PHYTONADIONE 10 MG/1 ML AMP IVPB ONE (06:04)
[2020-02-27] MEDS ORDERED: PHYTONADIONE 10 MG/1 ML AMP ONE (06:05)
[2020-02-27] MEDS ORDERED: VANCOMYCIN 1 GM in D5W (PRE-DOCKED) 1,000 MG/250 ML IVPB ONE (06:19)
[2020-02-27] MEDS ORDERED: PIPERACILLIN/TAZOB 3.375 GM 3.375 GM in DEXTROSE 5%-WATER - 50 ML IVPB ONE (06:19)
[2020-02-27] MEDS ORDERED: PIPERACILLIN/TAZOB 3.375 GM 3.375 GM/50 ML BAG IVPB ONE (07:02)
[2020-02-27] MEDS ORDERED: VANCOMYCIN 1 GRAM (PRE-DOCKED) 1,000 MG/250 ML BAG IVPB ONE (07:02)
[2020-02-27] MEDS ORDERED: KCL 10 MEQ IVPB 10 MEQ/100 ML INFUS.BAG IVPB ONE (07:26)
[2020-02-27 07:44] LABS: BASO % 0.1 % (0-2.0); EOS % 0.3 % (0-4.5); HEMATOCRIT 26.7 % (32.4-45.2); HEMOGLOBIN 8.4 GM/dL (10.7-15.3); INR 1.38 (0.83-1.09); LYMPH % 8.8 % (8-40); MCHC 31.6 g/dl (32.0-36.0); MEAN PLT VOLUME 6.4 fl (7.5-11.1); MONO % 5.4 % (3.8-10.2); NEUT % 85.4 % (42.8-82.8); PLATELET COUNT 109 K/MM3 (134-434); PROTHROMBIN TIME (PATIENT) 16.3 SEC (9.7-13.0); RBC 3.51 M/mm3 (3.60-5.2); RDW 22.5 % (11.6-15.6); WHITE BLOOD COUNT 15.4 K/mm3 (4.0-10.0)
[2020-02-27 07:47] LABS: ACTIVATED PTT 38.1 SECONDS (25.2-36.5)
[2020-02-27 07:58] LABS: ALBUMIN 2.6 g/dl (3.4-5.0); BILIRUBIN,TOTAL 0.5 mg/dL (0.2-1); BLOOD UREA NITROGEN 13.2 mg/dL (7-18); CALCIUM 7.5 mg/dL (8.5-10.1); CREATININE 0.7 mg/dL (0.55-1.3); MAGNESIUM 1.9 mg/dL (1.8-2.4); PHOSPHOROUS 3.7 mg/dL (2.5-4.9); POTASSIUM 3.2 mmol/L (3.5-5.1); TOT PROT 6.4 g/dl (6.4-8.2)
[2020-02-27 08:49] LABS: EPI CELLS >36 /uL (0-25.1); HYALINE CASTS 10 /uL (0-3.1); PH,URINE 6.5 (5.0-8.0); URINE APPEARANCE CLEAR; URINE BACTERIA 36 /uL (0-1359); URINE BILIRUBIN NEGATIVE (NEGATIVE); URINE COLOR YELLOW; URINE GLUCOSE (UA) 1+ (NEGATIVE); URINE KETONE NEGATIVE (NEGATIVE); URINE LEUK ESTERASE NEGATIVE (NEGATIVE); URINE NITRITE NEGATIVE (NEGATIVE); URINE PROTEIN 2+ (NEGATIVE); URINE RBC 515 /uL (0-23.9); URINE UROBILINOGEN 0.2 mg/dL (0.2-1.0); URINE WBC 13 /uL (0-25.8)
[2020-02-27 09:32] LABS: BASO % 0.1 % (0-2.0); EOS % 0.3 % (0-4.5); HEMATOCRIT 30.6 % (32.4-45.2); HEMOGLOBIN 9.8 GM/dL (10.7-15.3); LYMPH % 6.8 % (8-40); MCH 25.6 pg (25.7-33.7); MCHC 32.1 g/dl (32.0-36.0); MEAN CELL VOLUME 79.7 fl (80-96); MEAN PLT VOLUME 6.5 fl (7.5-11.1); MONO % 3.8 % (3.8-10.2); PLATELET COUNT 86 K/MM3 (134-434); RBC 3.84 M/mm3 (3.60-5.2); RDW 23.3 % (11.6-15.6); WHITE BLOOD COUNT 12.8 K/mm3 (4.0-10.0)
[2020-02-27 09:39] LABS: INR 1.24 (0.83-1.09); PROTHROMBIN TIME (PATIENT) 14.7 SEC (9.7-13.0)
[2020-02-27 09:40] LABS: ANISOCYTOSIS 2+; MACROCYTOSIS 1+; PLATELET ESTIMATE DECREASED
[2020-02-27 09:42] LABS: ACTIVATED PTT 33.2 SECONDS (25.2-36.5)
[2020-02-27] MEDS ORDERED: TRANEXAMIC ACID 1000 MG/10 ML VIAL IVPUSH ONE (09:45)
[2020-02-27 09:57] LABS: ALBUMIN 2.4 g/dl (3.4-5.0); BILIRUBIN,TOTAL 0.7 mg/dL (0.2-1); BLOOD UREA NITROGEN 11.4 mg/dL (7-18); CALCIUM 7.1 mg/dL (8.5-10.1); CREATININE 0.5 mg/dL (0.55-1.3)
--- NOTE | 2020-02-27 10:01 | PDOC ---
*Physical Exam - Vital Signs Last Vital Signs Temp Pulse Resp BP Pulse Ox 93.9 F L 129 H 22 H 124/65 100 02/27/20 04:19 02/27/20 06:45 02/27/20 06:45 02/27/20 06:45 02/27/20 06:45 ED Treatment Course - LABORATORY CBC & Chemistry Diagram: 02/27/20 09:02 02/27/20 09:02 - ADDITIONAL ORDERS Additional order review: Laboratory Results 02/27/20 02/27/20 02/27/20 09:02 09:02 07:25 PT with INR 14.70 H INR 1.24 H PTT (Actin FS) 33.2 Fibrinogen D-Dimer VBG pH POC VBG pCO2 POC VBG pO2 VBG HCO3 VBG O2 Sat (Sudheer) VBG Base Excess Sodium 138 138 Potassium 4.0 3.2 L Chloride 111 H 109 H Carbon Dioxide 19 L 20 L Anion Gap 8 10 BUN 11.4 13.2 Creatinine 0.5 L 0.7 Est GFR (CKD-EPI)AfAm 160.35 143.54 Est GFR (CKD-EPI)NonAf 138.35 123.85 Random Glucose 212 H 252 H Lactic Acid Calcium 7.1 L 7.5 L Phosphorus 3.7 Magnesium 1.9 Total Bilirubin 0.7 0.5 AST 56 H 56 H ALT 20 21 Alkaline Phosphatase 68 84 Creatine Kinase Troponin I Total Protein 6.0 L 6.4 Albumin 2.4 L 2.6 L TSH Free T4 Urine Color Urine Appearance Urine pH Ur Specific Alma Urine Protein Urine Glucose (UA) Urine Ketones Urine Blood Urine Nitrite Urine Bilirubin Urine Urobilinogen Ur Leukocyte Esterase Urine WBC (Auto) Urine RBC (Auto) Urine Casts (Auto) U Pathogenic Cast Auto U Epithel Cells (Auto) U Sm Round Cell (Auto) Urine Bacteria (Auto) Blood Type Antibody Screen Crossmatch 02/27/20 02/27/20 02/27/20 07:25 07:25 05:34 PT with INR 16.30 H INR 1.38 H PTT (Actin FS) 38.1 H Fibrinogen Cancelled D-Dimer 3881 H VBG pH POC VBG pCO2 POC VBG pO2 VBG HCO3 VBG O2 Sat (Sudheer) VBG Base Excess Sodium Potassium Chloride Carbon Dioxide Anion Gap BUN Creatinine Est GFR (CKD-EPI)AfAm Est GFR (CKD-EPI)NonAf Random Glucose Lactic Acid Calcium Phosphorus Magnesium Total Bilirubin AST ALT Alkaline Phosphatase Creatine Kinase Troponin I Total Protein Albumin TSH Free T4 1.07 Urine Color Urine Appearance Urine pH Ur Specific [place] Urine Protein Urine Glucose (UA) Urine Ketones Urine Blood Urine Nitrite Urine Bilirubin Urine Urobilinogen Ur Leukocyte Esterase Urine WBC (Auto) Urine RBC (Auto) Urine Casts (Auto) U Pathogenic Cast Auto U Epithel Cells (Auto) U Sm Round Cell (Auto) Urine Bacteria (Auto) Blood Type Antibody Screen Crossmatch 02/27/20 02/27/20 02/27/20 05:10 05:10 05:10 PT with INR INR PTT (Actin FS) Fibrinogen D-Dimer VBG pH 7.172 L* POC VBG pCO2 45.2 POC VBG pO2 162.8 H VBG HCO3 16.2 L VBG O2 Sat (Sudheer) 98.6 H VBG Base Excess -11.7 L Sodium Potassium Chloride Carbon Dioxide Anion Gap BUN Creatinine Est GFR (CKD-EPI)AfAm Est GFR (CKD-EPI)NonAf Random Glucose Lactic Acid Calcium Phosphorus Magnesium Total Bilirubin AST ALT Alkaline Phosphatase Creatine Kinase Troponin I Total Protein Albumin TSH Free T4 Urine Color Urine Appearance Urine pH Ur Specific [place] Urine Protein Urine Glucose (UA) Urine Ketones Urine Blood Urine Nitrite Urine Bilirubin Urine Urobilinogen Ur Leukocyte Esterase Urine WBC (Auto) Urine RBC (Auto) Urine Casts (Auto) U Pathogenic Cast Auto U Epithel Cells (Auto) U Sm Round Cell (Auto) Urine Bacteria (Auto) Blood Type Antibody Screen Crossmatch 02/27/20 02/27/20 02/27/20 05:10 05:10 05:10 PT with INR INR PTT (Actin FS) Fibrinogen D-Dimer VBG pH POC VBG pCO2 POC VBG pO2 VBG HCO3 VBG O2 Sat (Sudheer) VBG Base Excess Sodium Potassium Chloride Carbon Dioxide Anion Gap BUN Creatinine Est GFR (CKD-EPI)AfAm Est GFR (CKD-EPI)NonAf Random Glucose Lactic Acid 9.8 H* Calcium Phosphorus Magnesium Total Bilirubin AST ALT Alkaline Phosphatase Creatine Kinase Troponin I Total Protein Albumin TSH Free T4 Urine Color Yellow Urine Appearance Clear Urine pH 6.5 Ur Specific [place] 1.040 H Urine Protein 2+ H Urine Glucose (UA) 1+ H Urine Ketones Negative Urine Blood 3+ H Urine Nitrite Negative Urine Bilirubin Negative Urine Urobilinogen 0.2 Ur Leukocyte Esterase Negative Urine WBC (Auto) 13 Urine RBC (Auto) 515 Urine Casts (Auto) 10 U Pathogenic Cast Auto Non seen U Epithel Cells (Auto) >36 U Sm Round Cell (Auto) Non seen Urine Bacteria (Auto) 36 Blood Type Antibody Screen Crossmatch 02/27/20 02/27/20 02/27/20 04:10 04:10 04:10 PT with INR Cancelled INR Cancelled PTT (Actin FS) Cancelled Fibrinogen D-Dimer VBG pH POC VBG pCO2 POC VBG pO2 VBG HCO3 VBG O2 Sat (Sudheer) VBG Base Excess Sodium 136 Potassium 2.9 L* Chloride 106 Carbon Dioxide 12 L Anion Gap 19 H BUN 15.6 Creatinine 0.9 Est GFR (CKD-EPI)AfAm 105.93 Est GFR (CKD-EPI)NonAf 91.40 Random Glucose 220 H Lactic Acid Calcium 8.5 Phosphorus Magnesium Total Bilirubin 0.3 AST 33 ALT 20 Alkaline Phosphatase 102 Creatine Kinase 71 Troponin I 0.38 H Total Protein 7.6 Albumin 2.8 L TSH 8.42 H Free T4 Urine Color Urine Appearance Urine pH Ur Specific [place] Urine Protein Urine Glucose (UA) Urine Ketones Urine Blood Urine Nitrite Urine Bilirubin Urine Urobilinogen Ur Leukocyte Esterase Urine WBC (Auto) Urine RBC (Auto) Urine Casts (Auto) U Pathogenic Cast Auto U Epithel Cells (Auto) U Sm Round Cell (Auto) Urine Bacteria (Auto) Blood Type O POSITIVE Antibody Screen Negative Crossmatch See Detail 02/27/20 02/27/20 02/27/20 09:02 07:25 04:10 RBC 3.84 3.51 L 4.32 MCV 79.7 L 76.0 L 76.3 L MCHC 32.1 31.6 L 31.2 L RDW 23.3 H 22.5 H 21.2 H MPV 6.5 L 6.4 L D 7.2 L Neutrophils % 89.0 H 85.4 H D 45.8 D Lymphocytes % 6.8 L D 8.8 D 49.1 H D Monocytes % 3.8 5.4 D 2.1 L Eosinophils % 0.3 0.3 D 2.4 Basophils % 0.1 0.1 0.6 - Medications Given in the ED: ED Medications Discontinued Medications Generic Name Dose Route Start Last Admin Trade Name Freq PRN Reason Stop Dose Admin Sodium Chloride 1,000 mls @ 1,000 mls/hr 02/27/20 04:19 02/27/20 05:32 Normal Saline - IV 02/27/20 05:18 1,000 mls/hr .Q1H ONE Administration Potassium Chloride 10 meq in 100 mls @ 100 mls/hr 02/27/20 05:15 02/27/20 05:39 Potassium Chloride 10 Meq Premix Ivpb - IVPB 02/27/20 07:14 100 mls/hr Q60M [id number] Administration Midazolam HCl 4 mg 02/27/20 05:41 02/27/20 06:20 Versed - IVPUSH 02/27/20 05:42 4 mg ONCE ONE Administration Phytonadione 10 mg 02/27/20 06:04 02/27/20 06:07 Aqua Mephyton Injection - IVPB 02/27/20 06:05 10 mg ONCE ONE Administration Vancomycin HCl 1,000 mg 02/27/20 06:19 02/27/20 07:09 Vancomycin (Pre-Docked) IVPB 02/27/20 06:20 1,000 mg ONCE ONE Administration Protocol Medical Decision Making - Medical Decision Making Pt received as sign out Pt intubated and sedated S/p transfusion of 4:2:2 R IJ triple lumen placed Will transfuse additional 1u pRBC and plt Will give TXA 1g IV once Pt pending transfer to [facility] 02/27/20 09:58 Pt transferred out with [facility] critical care team At time of departure pt hemodynamically stable w/o vasoactive medications 02/27/20 11:00 Discharge - Discharge Information Problems reviewed: Yes Clinical Impression/Diagnosis: Endotracheally intubated, Unresponsive, DIC (disseminated intravascular coagulation) Qualifiers: Weeks of gestation: unspecified Qualified Code(s): Z34.90 - Encounter for supervision of normal , unspecified, unspecified trimester Placental abruption Qualifiers: Trimester: first trimester Qualified Code(s): O45.91 - Premature separation of placenta, unspecified, first trimester Condition: Critical Disposition: TRANSFER ACUTE CARE/OTHER HOSP - Follow up/Referral - Patient Discharge Instructions - Post Discharge Activity
[2020-02-27] MEDS ORDERED: MIDAZOLAM 100 MG/100 ML MG IVPB ONE (10:08)
[2020-02-27] MEDS ORDERED: TRANEXAMIC ACID 1000 MG/10 ML VIAL ONE (10:08)
[2020-02-27] MEDS ORDERED: KCL 10 MEQ IVPB 10 MEQ/100 ML INFUS.BAG IVPB SCH (11:30)
--- NOTE | 2020-02-27 12:52 | EKG ---
Test Reason : Blood Pressure : / mmHG Vent. Rate : 129 BPM Atrial Rate : 129 BPM P-R Int : 140 ms QRS Dur : 096 ms QT Int : 310 ms P-R-T Axes : 053 -12 041 degrees QTc Int : 454 ms SINUS TACHYCARDIA NONSPECIFIC ST AND T WAVE ABNORMALITY ABNORMAL ECG NO PREVIOUS ECGS AVAILABLE Confirmed by MD KATHYA, BERTIN ([id number]) on 02/27/2020 12:51:39 PM Referred By: Confirmed By:BERTIN RASHEED MD
[2020-02-27 16:09] VITALS: TEMP 96.8
[2020-02-27 16:13] VITALS: BP 110/78; PULSE 102
== END 2020-02-27 10:00 | disposition short-term general hospital (02) ==
LOC: JER 04:16
PROC: 3E03329 Introduction of Other Anti-infective into Peripheral Vein, Percutaneous Approach (ICD-10-PCS; principal; 2020-02-27)
PROC: 3E033GC Introduction of Other Therapeutic Substance into Peripheral Vein, Percutaneous Approach (ICD-10-PCS; 2020-02-27)
PROC: 3E0337Z Introduction of Electrolytic and Water Balance Substance into Peripheral Vein, Percutaneous Approach (ICD-10-PCS; 2020-02-27)
DX: O45.91 Premature separation of placenta, unspecified, first trimester (principal); D65 Disseminated intravascular coagulation [defibrination syndrome]; Z34.92 Encounter for supervision of normal pregnancy, unspecified, second trimester; Z3A.19 19 weeks gestation of pregnancy
CPT/HCPCS: 36415; 36430; 36511; 70450-TC; 71045-TC-FY; 71275-TC; 72125-TC; 74177-TC; 76815-TC; 80053; 81003; 82550; 82803; 82962; 83605; 83615; 83735; 84100; 84439; 84443; 84484; 85025; 85379; 85384; 85610; 85730; 86850; 86900; 86901; 86922; 87040; 87086; 93005; 93010; 99291; 99292; P9012; P9017; P9034; P9038; P9058

== ENCOUNTER 2022-12-25 23:44 | Emergency (ER) | payer OTHER ==
[2022-12-25 23:50] VITALS: RESP 18; TEMP 97.1; BMI 22.6
[2022-12-26] MEDS ORDERED: SODIUM CHLORIDE 0.9% 500 ML INFUS.BAG IV ONE (00:34)
[2022-12-26 00:56] LABS: BASO % 0.4 % (0-2.0); EOS % 4.7 % (0-4.5); HEMATOCRIT 31.7 % (32.4-45.2); HEMOGLOBIN 10.5 GM/dL (10.7-15.3); LYMPH % 42.6 % (8-40); MCH 22.7 pg (25.7-33.7); MCHC 33.2 g/dl (32.0-36.0); MEAN CELL VOLUME 68.3 fl (80-96); MEAN PLT VOLUME 8.3 fl (7.5-11.1); MONO % 8.8 % (3.8-10.2); NEUT % 43.5 % (42.8-82.8); PLATELET COUNT 252 10^3/uL (134-434); RBC 4.64 M/mm3 (3.60-5.2); RDW 28.3 % (11.6-15.6); WHITE BLOOD COUNT 5.9 K/mm3 (4.0-10.0)
[2022-12-26 00:57] LABS: EPI CELLS 10 /uL (0-25.1); HYALINE CASTS 0 /uL (0-3.1); URINE APPEARANCE CLEAR; URINE BACTERIA 8090 /uL (0-1359); URINE BILIRUBIN NEGATIVE (NEGATIVE); URINE COLOR YELLOW; URINE GLUCOSE (UA) NEGATIVE (NEGATIVE); URINE KETONE NEGATIVE (NEGATIVE); URINE LEUK ESTERASE TRACE (NEGATIVE); URINE NITRITE NEGATIVE (NEGATIVE); URINE PROTEIN NEGATIVE (NEGATIVE); URINE RBC 1 /uL (0-23.9); URINE UROBILINOGEN 0.2 mg/dL (0.2-1.0); URINE WBC 19 /uL (0-25.8)
[2022-12-26 01:01] LABS: HCG,QUALITATIVE URINE Positive
[2022-12-26 01:16] LABS: POTASSIUM 4.2 mmol/L (3.5-5.1)
[2022-12-26 01:18] LABS: CALCIUM 8.6 mg/dL (8.5-10.1)
[2022-12-26 01:19] LABS: ALBUMIN 3.1 g/dl (3.4-5.0); BLOOD UREA NITROGEN 9.8 mg/dL (7-18)
[2022-12-26 01:22] LABS: CREATININE 0.6 mg/dL (0.55-1.3)
[2022-12-26 01:23] LABS: BILIRUBIN,TOTAL 0.2 mg/dL (0.2-1)
[2022-12-26] MEDS ORDERED: ACETAMINOPHEN 1000 MG/100 ML BAG IVPB ONE (01:55)
[2022-12-26] MEDS ORDERED: ACETAMINOPHEN INJECTION 100 ML IVPB ONE (02:22)
[2022-12-26 02:28] VITALS: BP 109/70
[2022-12-26 03:11] VITALS: PULSE 57
== END 2022-12-26 03:11 | disposition home or self-care (01) ==
LOC: JER 23:44
PROC: 3E033NZ Introduction of Analgesics, Hypnotics, Sedatives into Peripheral Vein, Percutaneous Approach (ICD-10-PCS; principal; 2022-12-26)
DX: O20.9 Hemorrhage in early pregnancy, unspecified (principal); O99.611 Diseases of the digestive system complicating pregnancy, first trimester; R10.2 Pelvic and perineal pain; Z3A.12 12 weeks gestation of pregnancy
CPT/HCPCS: 36415; 76817-TC; 80053; 81003; 84702; 84703; 85025; 86850; 86900; 86901; 87086; 87186; 99284-25

== ENCOUNTER 2023-06-28 10:30 | Inpatient (IN) | payer OTHER ==
[2023-06-28] MEDS: ELECTROLYTE-148 SOLN 1,000 ML IV SCH (11:15)
[2023-06-28 11:21] LABS: BASO % 0.2 % (0-2.0); HEMATOCRIT 36.5 % (32.4-45.2); HEMOGLOBIN 11.6 GM/dL (10.7-15.3); LYMPH % 23.5 % (8-40); MCH 23.4 pg (25.7-33.7); MCHC 31.7 g/dl (32.0-36.0); MEAN CELL VOLUME 73.7 fl (80-96); MEAN PLT VOLUME 6.9 fl (7.5-11.1); MONO % 6.2 % (3.8-10.2); NEUT % 67.1 % (42.8-82.8); PLATELET COUNT 314 10^3/uL (134-434); RBC 4.95 M/mm3 (3.60-5.2); RDW 16.5 % (11.6-15.6); WHITE BLOOD COUNT 9.1 K/mm3 (4.0-10.0)
[2023-06-28 11:23] VITALS: BMI 31.6
[2023-06-28] MEDS ORDERED: CITRIC ACID/SODIUM CITRATE 30 ML UNIT-DOSE CUP PO ONE (11:24)
[2023-06-28 11:28] LABS: INR 0.93 (0.83-1.09); PROTHROMBIN TIME (PATIENT) 10.8 SEC (9.7-13.0)
[2023-06-28 11:30] LABS: ACTIVATED PTT 29.5 SECONDS (25.2-36.5)
[2023-06-28 11:48] LABS: POTASSIUM 3.8 mmol/L (3.5-5.1)
[2023-06-28 11:49] LABS: CALCIUM 8.7 mg/dL (8.5-10.1)
[2023-06-28 11:50] LABS: BLOOD UREA NITROGEN 9.8 mg/dL (7-18)
[2023-06-28 11:53] LABS: CREATININE 0.5 mg/dL (0.55-1.3)
[2023-06-28 12:03] LABS: COCAINE, UR NEGATIVE (NEGATIVE); METHADONE, UR NEGATIVE (NEGATIVE); OPIATES, URI NEGATIVE (NEGATIVE); URINE AMPHETAMINES NEGATIVE (NEGATIVE); URINE BARBITURATES NEGATIVE (NEGATIVE); URINE BENZODIAZEPINES NEGATIVE (NEGATIVE)
[2023-06-28] MEDS ORDERED: IBUPROFEN 600 MG TABLET (FP) PO PRN (12:03)
[2023-06-28] MEDS ORDERED: ONDANSETRON 4 MG/2 ML VIAL IVPUSH PRN (12:03)
[2023-06-28] MEDS ORDERED: ACETAMINOPHEN 325 MG TABLET (FP) PO PRN (12:03)
[2023-06-28] MEDS ORDERED: PHENYLEPHRINE HCL 10 MG/1 ML SINGLE DOSE VIAL ONE (12:05)
[2023-06-28] MEDS ORDERED: morphine SULFATE/PF 1 MG/2 ML (2cc Syringe - QUVA) ONE (12:05)
[2023-06-28 12:07] LABS: PHENCYCLIDINE,URINE NEGATIVE (NEGATIVE)
[2023-06-28] MEDS ORDERED: ONDANSETRON 4 MG/2 ML VIAL IVPB PRN (13:45)
[2023-06-28] MEDS ORDERED: OXYTOCIN 20 UNITS in 0.9% NS 20 UNIT/1,000 ML INFUS.BAG IV ONE (14:19)
[2023-06-28] MEDS: OXYTOCIN 20 UNITS in 0.9% NS 20 UNIT/1,000 ML INFUS.BAG IV SCH ×2 (14:25→23:28)
[2023-06-28] MEDS: IBUPROFEN 800 MG/8 ML IJ IVPB SCH ×2 (14:29→22:30)
[2023-06-28] MEDS: ACETAMINOPHEN 1000 MG/100 ML BAG IVPB SCH ×2 (14:30→19:29)
[2023-06-28] MEDS: SIMETHICONE 80 MG TAB.CHEW (FP) PO PRN (19:30)
[2023-06-28] MEDS: SENNOSIDES/DOCUSATE COMBO (SENNA PLUS) TABLET (UD) PO SCH (22:30)
[2023-06-29] MEDS: ACETAMINOPHEN 1000 MG/100 ML BAG IVPB SCH ×2 (01:35→07:45)
[2023-06-29] MEDS: SIMETHICONE 80 MG TAB.CHEW (FP) PO PRN ×2 (01:35→06:03)
[2023-06-29] MEDS: IBUPROFEN 800 MG/8 ML IJ IVPB SCH (06:02)
[2023-06-29 09:10] LABS: BASO % 0.2 % (0-2.0); EOS % 3.1 % (0-4.5); HEMATOCRIT 31.6 % (32.4-45.2); HEMOGLOBIN 10.2 GM/dL (10.7-15.3); LYMPH % 18.8 % (8-40); MCH 23.8 pg (25.7-33.7); MCHC 32.3 g/dl (32.0-36.0); MEAN CELL VOLUME 73.5 fl (80-96); MEAN PLT VOLUME 6.9 fl (7.5-11.1); NEUT % 71.9 % (42.8-82.8); PLATELET COUNT 246 10^3/uL (134-434); RDW 16.3 % (11.6-15.6); WHITE BLOOD COUNT 10.6 K/mm3 (4.0-10.0)
[2023-06-29] MEDS ORDERED: DIPHTH,PERTUSS(ACELL),TET 0.5 ML DISP.SYRIN IM ONE ×2 (10:00→11:30)
[2023-06-29] MEDS ORDERED: oxyCODONE HCL 5 MG TABLET PO PRN (12:00)
[2023-06-29] MEDS ORDERED: BISACODYL 10 MG SUPP.RECT RC PRN (13:45)
[2023-06-29] MEDS ORDERED: ACETAMINOPHEN 325 MG TABLET (FP) PO PRN (14:00)
[2023-06-29] MEDS ORDERED: IBUPROFEN 600 MG TABLET (FP) PO PRN (14:00)
[2023-06-29] MEDS: SENNOSIDES/DOCUSATE COMBO (SENNA PLUS) TABLET (UD) PO SCH (23:40)
[2023-06-30] MEDS: LACTATED RINGERS SOLUTION 1,000 ML/1,000 ML INFUS.BAG IV SCH ×2 (19:37→19:38)
[2023-06-30] MEDS: ELECTROLYTE-148 SOLN 1,000 ML IV SCH (19:38)
[2023-06-30] MEDS: OXYTOCIN 20 UNITS in 0.9% NS 20 UNIT/1,000 ML INFUS.BAG IV SCH (19:38)
[2023-06-30] MEDS: SENNOSIDES/DOCUSATE COMBO (SENNA PLUS) TABLET (UD) PO SCH (22:26)
[2023-07-01 15:12] VITALS: RESP 17
[2023-07-01] MEDS: SENNOSIDES/DOCUSATE COMBO (SENNA PLUS) TABLET (UD) PO SCH (21:03)
[2023-07-02 10:18] VITALS: BP 94/58; PULSE 68; TEMP 97.7
== END 2023-07-02 13:45 | disposition home or self-care (01) | DRG 540 ==
LOC: JLDR 10:30 → J3W 15:20
PROVIDERS: ADMIT Specialist; ATTEND Specialist
PROC: 10D00Z1 Extraction of Products of Conception, Low, Open Approach (ICD-10-PCS; principal; 2023-06-28)
DX: O34.219 Maternal care for unspecified type scar from previous cesarean delivery (principal); O46.93 Antepartum hemorrhage, unspecified, third trimester; Z3A.00 Weeks of gestation of pregnancy not specified; Z3A.38 38 weeks gestation of pregnancy; Z37.0 Single live birth
CPT/HCPCS: 36415; 80048; 80307; 85025; 85610; 85730; 86780; 86850; 86900; 86901; 88307-TC; 90715; 94010